=== PATIENT | male | born 1995 | race Asian ===

== ENCOUNTER 2024-03-30 18:57 | Emergency (ER) | payer MEDICAID, OTHER, SELFPAY ==
--- NOTE | ~2024-03-30 | XR_ITS ---
EXAMINATION: XR HAND/WRIST, RIGHT XR HAND/WRIST, LEFT CLINICAL INFORMATION: Pain COMPARISON: None TECHNIQUE: PA, lateral, and oblique views of the each hand and wrist. FINDINGS: RIGHT HAND/WRIST: The bones and soft tissues are normal. No fracture. Alignment is anatomic. Joint spaces are maintained. No erosions or soft tissue calcifications. LEFT HAND/WRIST: The bones and soft tissues are normal. No fracture. Alignment is anatomic. Joint spaces are maintained. No erosions or soft tissue calcifications. XR/XR hand wrist RT IMPRESSION: Normal radiographs of the hands and wrists. Electronically signed by: Kylie Marin MD 03/30/2024 07:59 PM EDT
--- NOTE | ~2024-03-30 | XR_ITS ---
EXAMINATION: XR KNEE, RIGHT CLINICAL INFORMATION: Pain COMPARISON: None available. TECHNIQUE: Four views of the right knee. FINDINGS: No fracture or joint effusion. Alignment is anatomic. Joint spaces are maintained. No abnormal soft tissue calcification. XR/XR knee RT 3V IMPRESSION: Normal right knee. Electronically signed by: Kylie Marin MD 03/30/2024 07:54 PM EDT
--- NOTE | ~2024-03-30 | XR_ITS ---
EXAMINATION: XR HAND/WRIST, RIGHT XR HAND/WRIST, LEFT CLINICAL INFORMATION: Pain COMPARISON: None TECHNIQUE: PA, lateral, and oblique views of the each hand and wrist. FINDINGS: RIGHT HAND/WRIST: The bones and soft tissues are normal. No fracture. Alignment is anatomic. Joint spaces are maintained. No erosions or soft tissue calcifications. LEFT HAND/WRIST: The bones and soft tissues are normal. No fracture. Alignment is anatomic. Joint spaces are maintained. No erosions or soft tissue calcifications. XR/XR hand wrist LT IMPRESSION: Normal radiographs of the hands and wrists. Electronically signed by: Kylie Marin MD 03/30/2024 07:54 PM EDT
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
[2024-03-30 19:14] VITALS: BP 135/69; PULSE 80; RESP 20; TEMP 36.7; O2SAT 99; BMI 27.8
== END 2024-03-30 21:31 | disposition left against medical advice (07) ==
PROVIDERS: Emergency Provider Emergency Medicine
DX: M25.561 Pain in right knee (principal); M79.641 Pain in right hand; M79.642 Pain in left hand; M25.532 Pain in left wrist; M25.531 Pain in right wrist
CPT/HCPCS: 73110; 73130; 73562; 99281; 99283

== ENCOUNTER 2024-03-31 15:23 | Emergency (ER) | payer MEDICAID, OTHER, SELFPAY ==
[2024-03-31 15:33] VITALS: BP 127/79; PULSE 91; RESP 18; TEMP 36.8; O2SAT 96; BMI 31.4
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
== END 2024-03-31 15:55 | disposition home or self-care (01) ==
PROVIDERS: Emergency Provider Emergency Medicine
DX: S63.502A Unspecified sprain of left wrist, initial encounter (principal); V43.52XA Car driver injured in collision with other type car in traffic accident, initial encounter; Y93.9 Activity, unspecified; Y92.410 Unspecified street and highway as the place of occurrence of the external cause; Y99.9 Unspecified external cause status
CPT/HCPCS: 99281; 99283